=== PATIENT | female | born 1990 | race Caucasian/White ===

== ENCOUNTER → 2017-01-24 | Outpatient (CLI) | payer OTHER ==
--- NOTE | 2017-01-24 10:22 | NUR ---
Eval 2 hr/Client wa referred for andeval as a referral from district court in [place] for a federal offense.
--- NOTE | 2017-01-26 12:32 | CDE ---
ADMIT: 01/24/2017 RM/LOC: [facility] MR#: [id number] [address] [id number] MONICA KILLIAN [address] [place] [address] Chemical Dependency Evaluation SEX: F AGE: 26 : 1990 A. DEMOGRAPHICS: NAME: Monica Killian DATE OF : 1990 EVALUATING COUNSELOR: Herson Sweeney MS, LMHP, LADC, CSAT DATE OF EVALUATION: 01/24/2017 B. PRESENTING PROBLEM/CHIEF COMPLAINT: This client has a case pending for a conspiracy to deliver drugs. This is from May of 2016. She was referred here by Juanpablo Pickering, her patent attorney. C. MEDICAL HISTORY: This client has no medical issues at this time. D. 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 She left that job due to too low of wages. 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 She has been out of [facility] the last five years. 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 EDUCATION: This client has her high school diploma and one year of college. She has no goals in the area of education at this time. : This client has never been in the . E. ALCOHOL/DRUG ASSESSMENT SUMMARY: ALCOHOL: This client first drank alcohol at age 19. She would only drink once or twice a year and has not drank since 2014. MARIJUANA: This client tried marijuana at age 22. She tried it one time, did not like it, and has not tried it since then. COCAINE: No use reported. METHAMPHETAMINES: No use reported. HALLUCINOGENS: No use reported. HEROIN: No use reported. PRESCRIPTION DRUGS: No abuse reported. OTHER DRUGS (INHALANTS, OVER THE COUNTER, ETC): No abuse reported. NICOTINE: No use reported. This client denied having any negative consequences due to drug or alcohol use. F. LEGAL HISTORY: This client stated that in 2014, she had a possession charge that was ADMIT: 01/24/2017 RM/LOC: [facility] MR#: [id number] [address] [address] MONICA KILLIAN [address] [place] [address] Chemical Dependency Evaluation SEX: F AGE: 26 : 1990 dismissed. In 2015, she received a conspiracy charge, and those charges are still pending. So, she does not know what her consequences are. G. FAMILY/SOCIAL/PEER HISTORY: This client was raised in [place] and [place] by her biological parents. She described her family upbringing as beautiful. Her parents did separate and she is not sure when or why. She denied that it had any effect on her. This client stated that her relationship with her mom is great and she has no contact with her dad. Her worst memory growing up is getting at age 14. Fondest memory of her childhood is her family always traveling together. She always felt safe with her parents growing up because they were great parents. This client left home for the last time at age 14. She has never been . She does have two kids, Ramiro Barroso is 11 and Jerod is 7. She has been in a relationship now for 9 years. She denied having any serious problems affecting her life at this time even though her kids' dad is in [place] and cannot come up here. SEXUAL HISTORY AND TRAUMA: This client stated she is heterosexual and she is comfortable with that orientation. She denied ever being the victim of sexual or physical abuse and she denied ever inflicting any aggressive sexual or physical abuse on others. SOCIAL RELATIONSHIPS: This client prefers to hang around people who do not use or drink and the majority of her friends do not. This client stated she only associates with her coworkers and they are all older than her. She does spend a lot of time alone. She denied ever being involved in any gang activity. RECREATIONAL AND LEISURE ACTIVITIES: She enjoys spending time with her kids. She has never done drugs or alcohol while spending time with them. This client stated she spends a typical day working, going home to her kids, doing house work, eating dinner, showering, and sleeping. This client does not get enough physical activity as she said there was not enough time after she gets off work. SPIRITUAL: This client does believe in God and finds purpose and meaning in her life and her children and family. She stated she is [employer], but she does not attend congregation. H. PSYCHIATRIC/BEHAVIORAL HISTORY: This client has never thought of suicide and has not attempted it. She denied ever having any in or outpatient treatment for mental health or behavioral problems. I. COLLATERAL INFORMATION: This client's patent attorney was talked to, he explained this client's situation the ADMIT: 01/24/2017 RM/LOC: [facility] MR#: [id number] [address] [address] MONICA KILLIAN [address] [place] [address] Chemical Dependency Evaluation SEX: F AGE: 26 : [address] had explained it and so it appears this client was very truthful throughout the interview process. This client listed herself as a total abstainer of alcohol and a non-user of other drugs. She said her strengths are she is good with numbers, she is always positive, she is a hard worker and a quick learner. Weakness are she does not have a lot of patience. She gets stressed. She has a hard time communicating and she is shy. THE DRINKER TYPE RATING: Is a measure of how the client perceives their own drinking and/or using. This rating is indicative of how resistant or accepting the person is to the drinking problem. The client chose their rating from the following classifications: ALCOHOL Total Abstainer Light Social (non-problem) Drinker Moderate Social (non-problem) Drinker User Heavy Social (non-problem)Drinker Problem Drinker Alcoholic OTHER DRUG Nonuser Light Social (non-problem) User Moderate Social (non-problem) User Heavy Social (non-problem) User Problem User Addicted/Dependent The client rated her self as no use of drugs or alchohol. SUBSTANCE ABUSE SUBTLE SCREENING INVENTORY (SASSI): The SASSI is an assessment tool specifically designed to provide a clearer picture of what lies beneath the facade presented by most patients or clients. Scores on this assessment aid in distinguishing nonabusers from abusers, alcoholics from drug abusers and nondefensive clients from defensive ones. The incorporation of a "denial scale" further enhances the ability to make an accurate recommendation This client SASSI scores according to the decision rule indicate that she has a low probability of having a substance dependence disorder and her scores are as follows ADMIT: 01/24/2017 RM/LOC: [facility] MR#: [id number] [address] [place] [id number] MONICA KILLIAN [address] [place] [address] Chemical Dependency Evaluation SEX: F AGE: 26 : 1990 Client scores are: Face Valid Alcohol (FVA): 2 Face Valid Other Drugs (FVOD): 0 Symptoms (SYM): 1 Obvious Attributes (OAT): 2 Subtle Attributes (SAT): 6 Defensiveness (DEF): 6 Supplemental Addiction Measure (MAGALIE): 5 Family versus Controls (FAM): 9 Correctional (COR): 1 Random Answering Pattern (RAP): 0 RX1: 0 RX2: 0 RX TOTAL: 0 Again, these scores indicate that this client has a low probability of having a substance dependence disorder. We administered the ASI. Please see attached summary sheet. K. CLINICAL IMPRESSION: 1. V71.09, no diagnosis. 2. Z653, problems related to other legal circumstances. 3. GAF 50. This client was well dressed for this interview process. She appeared to be open and honest throughout the interview process. L. RECOMMENDATIONS PRESENTED TO CLIENT: This client was told that she did not meet the criteria for any diagnosis of any substance abuse and there would be no recommendation to deal with any type of drug issues, however, she would be referred to someone to deal with stress and life's issues that she is going on now. She was given the name of Darlene Sahu from [facility], but she is free to go anywhere she wants to seek counseling for the anxiety and stress that she is experiencing. Again this client was told that she could benefit from some counseling to help her deal with her anxiety and stress and was given the name of Darlene Sahu at [facility] in [place], but she does have the ability and opportunity to go wherever she wants to go. CLIENT RESPONSE: This client stated that might be a good thing for her to do and she would pursue that. [facility] CLINICAL ASSESSMENT CRITERIA: ADMIT: 01/24/2017 RM/LOC: [facility] MR#: [id number] [facility] [address] [address] MONICA KILLIAN [address] [place] [address] Chemical Dependency Evaluation SEX: F AGE: 26 : 1990 Low/Medium/High Dimension 1 = Intoxication and Withdrawal(i.e. history of withdrawal, level of current use): Low. Dimension 2 = Medical (i.e. , diabetes, medications, chronic conditions): Low. Dimension 3 = Emotional/Behavior Conditions(i.e. psych history, impulsivity, depression, anxiety, trauma history): Medium. Dimension 4 = Treatment Acceptance/Resistance(i.e. past history, minimization/blame, acknowledgement of problem, pressure to seek treatment, does not feel they have a problem): Medium. Dimension 5 = Relapse Potential (i.e. inability to abstain, use despite consequences, significant preoccupation, relapse despite outpatient treatment attempts): Low. Dimension 6 = Recovery/Living Environment(i.e. current users reside in environment, family attitude, lack of consistent adult support in living environment, high exposure to using in social/work environment): Low. CRIMINOGENIC RISK FACTORS: Low/Moderate/High Antisocial Attitudes: Low. Antisocial Peers: Low. Self Control Skills: Medium. Family Dysfunction: Low. Past Criminality: Low. Thank you for the opportunity to work with this client. Herson Sweeney MS,KEEGAN,PALOMO, SUZETTET/ modl JOB #: [id number] CC:
== END | disposition home or self-care (01) ==
LOC: ADTC.GI 09:15
DX: Z65.3 Problems related to other legal circumstances (principal)